=== PATIENT | female | born 1980 | race Caucasian/White ===

== ENCOUNTER 2020-12-16 14:28 | Emergency (ER) | payer MEDICAID ==
[~2020-12-16] VITALS: Ht 149.9 cm; Wt 68.0 kg
[2020-12-16 14:44] VITALS: BP 103/69
--- NOTE | 2020-12-16 14:52 | NUR ---
PT W/C ASSISSTED TO BED
[2020-12-16] MEDS ORDERED: HYDROcodone/APAP 5/325 MG 1 TAB TAB PO ONE (15:30)
[2020-12-16] MEDS ORDERED: KETOROLAC 60 MG/2 ML VIAL IM ONE (15:30)
--- NOTE | 2020-12-16 15:36 | NUR ---
39/F FROM TRIAGE WITH A C/O BILATERAL LEG PAIN. DENIES INJURY OR TRAUMA. BILATERAL PEDAL PULSES PRESENT AND WNL. SKIN TEMP IS NORMAL TO TOUCH AND NORMAL COLOR FOR EHTNICITY.
--- NOTE | 2020-12-16 16:28 | NUR ---
PT IS SLEEPING IN BED, FLACC 0.
[2020-12-16] MEDS ORDERED: METH4TAB1 PO (16:44)
[2020-12-16] MEDS ORDERED: NAPR-54 PO (16:44)
[2020-12-16 16:59] VITALS: BP 103/69
--- NOTE | 2020-12-16 16:59 | NUR ---
Patient discharged with v/s stable. Written and verbal after care instructions given and explained. Patient alert, oriented and verbalized understanding of instructions. Wheel Chair Assisted with to car. All questions addressed prior to discharge. ID band removed. Patient advised to follow up with PMD. Rx of MEDROL AND NAPROXEN given. Patient educated on indication of medication including possible reaction and side effects. Opportunity to ask questions provided and answered.
== END 2020-12-16 16:59 | disposition home or self-care (01) ==
LOC: MED 14:28
DX: M79.10 Myalgia, unspecified site (principal); M54.5 Low back pain; M25.562 Pain in left knee; Z88.0 Allergy status to penicillin; Z79.899 Other long term (current) drug therapy
CPT/HCPCS: 72100; 81002; 81025; 96372; 99283; J1885

== ENCOUNTER 2021-05-20 01:38 | Emergency (ER) | payer MEDICAID ==
[~2021-05-20] VITALS: Ht 144.8 cm; Wt 70.8 kg
[~2021-05-20 01:38] MED LIST: METH4TAB1 PO; NAPR-54 PO
[2021-05-20 02:09] VITALS: BP 121/77
--- NOTE | 2021-05-20 02:10 | NUR ---
9 RT SHOULDER PAIN S/P FALL 2HRS. PT DENIES HITTING HEAD, NO LOC. PT IS UNABLE TO MOVE RT ARM. DENIES HX, RX ALLERGIES PCN
--- NOTE | 2021-05-20 03:01 | NUR ---
PT RETURNED TO LOBBY VIA W/C S/P XRAY.
[2021-05-20] MEDS ORDERED: HYDROcodone/APAP 10/325 MG 1 TAB TAB PO ONE (03:05)
[2021-05-20] MEDS ORDERED: IBUP-2213 PO (03:32)
[2021-05-20] MEDS ORDERED: HYDR-5080 PO (03:32)
[2021-05-20 04:22] VITALS: BP 121/77
--- NOTE | 2021-05-20 04:22 | NUR ---
Patient discharged with v/s stable. Written and verbal after care instructions given and explained. Patient alert, oriented and verbalized understanding of instructions. Wheel Chair Assisted with to car. All questions addressed prior to discharge. ID band removed. Patient advised to follow up with PMD. Rx of IBUPROFEN AND NORCO given. Patient educated on indication of medication including possible reaction and side effects. Opportunity to ask questions provided and answered.
== END 2021-05-20 04:22 | disposition home or self-care (01) ==
LOC: MED 01:38
DX: S42.201A Unspecified fracture of upper end of right humerus, initial encounter for closed fracture (principal); Z88.0 Allergy status to penicillin; Z79.899 Other long term (current) drug therapy; W19.XXXA Unspecified fall, initial encounter; Y93.89 Activity, other specified; Y92.89 Other specified places as the place of occurrence of the external cause; Y99.8 Other external cause status
CPT/HCPCS: 73030; 99283